=== PATIENT | female | born 1980 | race Caucasian/White ===

== ENCOUNTER 2018-04-08 09:46 | Outpatient (CLI) | payer MEDICAID, SELFPAY ==
[2018-04-08 11:12] LABS: TSH (W/Ref FT4) 1.86 uIU/mL (0.358-3.74)
== END 2018-04-08 10:06 ==
PROVIDERS: PCP Nurse Practitioner Family; Visit Provider Nurse Practitioner Women's Health
DX: R63.5 Abnormal weight gain (principal); N92.6 Irregular menstruation, unspecified
CPT/HCPCS: 36415; 84443

== ENCOUNTER 2018-04-08 11:17 | Outpatient (REF) | payer MEDICAID, SELFPAY ==
--- NOTE | 2018-04-08 09:20 | PAPFT_PTH ---
PATIENT: NILAY TOBIAS LOC: [facility] U#:[id number] AGE/SX: 37/F ROOM: RE04/08/[address]: Sania Shepherd NP : 1980 BED: DIS: 04/08/2018 SPEC #: [id number] RECD: 04/08/18 13:01 STATUS: [facility] PRASAD #: [id number] BIA: 04/08/18 09:[address]: Sania Shepherd NP DEPT: [facility] Cytology RECD BY: Tg Devries ENTERED: 04/08/18 13:01 SP TYPE: PAPFT OTHR DR: Sarah Barrientos Tissues: 1 - CX/ENDOCX FOR PAP SMEARS Procedures: PAP THIN PREP/[facility] Screening HPV DNA PROBE Comments: [id number]
== END 2018-04-08 11:37 ==
LOC: LBN 11:17
PROVIDERS: PCP Nurse Practitioner Family; Visit Provider Nurse Practitioner Women's Health
DX: Z12.4 Encounter for screening for malignant neoplasm of cervix (principal); Z11.51 Encounter for screening for human papillomavirus (HPV)
CPT/HCPCS: 88142; 87624